=== PATIENT | male | born 1955 | race Caucasian/White ===

== ENCOUNTER → 2018-02-27 | Outpatient (CLI) | payer OTHER ==
[~2018-02-27] MED LIST: ADDERALL XR 3030 MG PO; CARISOPRODOL; CARISOPRODOL 3350 MG PO; HYDROCODON-ACE1 EAC5 PO; VICODIN
[2018-02-27 10:19] VITALS: BP 132/74; BP 133/69; BP 140/70; BP 161/88
--- NOTE | 2018-02-27 13:19 | NUR ---
ARRIVED AMBULATORY WITH . MADE SELF COMFORTABLE IN RECLINER. BLOOD TRANSFUSION PROCCESS AND POSSIBLE ADVERSE REACTION REVIEWED. VOICED UNDERSTANDING AND AGREED. TRANSFUSION COMPLETED AND TOLERATED WELL. DENIES QUESTIONS OR NEEDS AT DISCHARGE.
== END ==
LOC: M.LAB 02-26 10:00 → M.INFUS 09:53
DX: D50.9 Iron deficiency anemia, unspecified (principal); K21.9 Gastro-esophageal reflux disease without esophagitis